=== PATIENT | female | born 1975 | race Caucasian/White ===

== ENCOUNTER 2020-03-15 15:00 | Observation (INO) ==
[2020-03-15] MEDS ORDERED: *HR* HYDROmorphone (PF) 1 MG/ML SYRINGE IVP PRN ×2 (15:59→20:03)
[2020-03-15] MEDS ORDERED: Ondansetron 4 MG/2 ML VIAL IVP PRN ×2 (15:59→20:03)
[2020-03-15] MEDS ORDERED: Ringers Solution, Lactated 1,000 ML IVC SCH (16:00)
[2020-03-15 16:13] LABS: White Blood Count 13.8 K/mcL (4.3-11.1)
[2020-03-15 16:14] LABS: Basophils % 0.3 %; Eosinophils # 0.2 K/mcL (0.0-0.6); Eosinophils % 1.3 %; Hematocrit 36.2 % (35.3-44.9); Hemoglobin 11.6 g/dL (11.5-15.4); Immature Granulocytes % 0.3 % (0-4); Lymphocytes # 1.8 K/mcL (0.6-4.6); Lymphocytes % 13.2 %; Mean Corpuscular Hemoglobin 30.6 pg (28.0-33.3); Mean Corpuscular Volume 95.5 fL (83.0-100.0); Mean Platelet Volume 8.9 fL (9.4-12.4); Monocytes # 0.8 K/mcL (0.0-1.3); Monocytes % 5.8 %; Platelet Count 374 K/mcL (140-400); Red Blood Count 3.79 M/mcL (3.82-4.97); Red Cell Distribution Width 12.9 % (11.5-14.5); Segmented Neutrophils % 79.1 %
[2020-03-15 16:32] LABS: BUN/Creatinine Ratio 16 (6-26); Blood Urea Nitrogen 11 mg/dL (6-20); Calcium 8.9 mg/dL (8.6-10.3); Carbon Dioxide 23 mEq/L (23-29); Chloride 106 mEq/L (98-107); Glucose 93 mg/dL (70-105); Osmolality,Calculated 285 (280-300); Sodium 138 mEq/L (136-145); eGFR For African Americans > 60 (> 60); eGFR For Non-African Americans > 60 (> 60)
[2020-03-15] MEDS ORDERED: *HR* Succinylcholine 200 MG/10 ML VIAL IVP ONE (17:30)
[2020-03-15] MEDS ORDERED: Lidocaine -MPF 2% 2 ML VIAL ONE (17:30)
[2020-03-15] MEDS ORDERED: *HR* Propofol 200 MG/20 ML VIAL IVP ONE (17:30)
[2020-03-15] MEDS ORDERED: Lidocaine HCL 4 ML Topical Solution (Laryng-O-Jet Kit Sterile Pak) TP ONE (17:35)
[2020-03-15] MEDS ORDERED: Metoclopramide 10 MG/2 ML VIAL IVP ONE (17:49)
[2020-03-15] MEDS ORDERED: Famotidine 20 MG/2 ML VIAL IVP ONE (17:49)
[2020-03-15 18:04] LABS: Adenovirus Not Detected (Not Detect); Coronavirus 229E Not Detected (Not Detect); Coronavirus HKU1 Not Detected (Not Detect); Coronavirus NL63 Not Detected (Not Detect); Coronavirus OC43 Not Detected (Not Detect)
[2020-03-15 18:05] LABS: Bordetella Pertussis Not Detected (Not Detect); Chlamydophila pneumoniae Not Detected (Not Detect); Human Metapneumovirus Not Detected (Not Detect); Human Rhinovirus/Enterovirus Not Detected (Not Detect); Influenza A Subtype 2009 H1 Not Detected (Not Detect); Influenza B Not Detected (Not Detect); Mycoplasma pneumoniae Not Detected (Not Detect); Parainfluenza Virus 1 Not Detected (Not Detect); Parainfluenza Virus 2 Not Detected (Not Detect); Parainfluenza Virus 3 Not Detected (Not Detect); Parainfluenza Virus 4 Not Detected (Not Detect); Respiratory Syncytial Virus Not Detected (Not Detect); SARS-CoV-2 Not Detected (Not Detect)
[2020-03-15] MEDS ORDERED: Naloxone 0.4 MG/ML INJ IVP PRN ×2 (18:28→20:03)
[2020-03-15] MEDS ORDERED: flumazeniL 0.5 MG/5 ML VIAL IVP PRN (18:28)
[2020-03-15] MEDS ORDERED: *HR* FentaNYL (PF) 100 MCG/2 ML VIAL IVP PRN (18:28)
[2020-03-15] MEDS ORDERED: *HR* HYDROmorphone PF 0.5 MG/0.5 ML SYRINGE IVP PRN (18:28)
[2020-03-15] MEDS ORDERED: Ondansetron 4 MG/2 ML VIAL ONE (18:59)
[2020-03-15] MEDS ORDERED: Dexamethasone 4 MG/ML VIAL ONE (18:59)
[2020-03-15] MEDS ORDERED: *HR* HYDROMORPHONE 2 MG/ML VIAL ONE (18:59)
[2020-03-15] MEDS ORDERED: Acetaminophen IV 1,000 MG/100 ML INFUS..BTL ONE (19:02)
[2020-03-15] MEDS ORDERED: *HR* Labetalol 20 MG/4 ML SYRINGE IVP ONE (19:11)
[2020-03-15] MEDS ORDERED: Acetaminophen 325 MG TABLET PO PRN (20:03)
[2020-03-15] MEDS: *HR* OxyCODONE/APAP 5/325 TABLET PO PRN (20:27)
[2020-03-15] MEDS: Gabapentin 300 MG CAPSULE PO SCH (20:28)
[2020-03-15] MEDS: Ringers Solution, Lactated 1,000 ML IVC SCH (20:29)
[2020-03-16 04:24] LABS: Basophils % 0.1 %; Hematocrit 34.5 % (35.3-44.9); Hemoglobin 10.7 g/dL (11.5-15.4); Immature Granulocytes % 0.4 % (0-4); Lymphocytes # 0.8 K/mcL (0.6-4.6); Lymphocytes % 5.7 %; Mean Corpuscular Hemoglobin 29.4 pg (28.0-33.3); Mean Corpuscular Volume 94.8 fL (83.0-100.0); Monocytes # 0.2 K/mcL (0.0-1.3); Monocytes % 1.3 %; Neutrophils # 12.5 K/mcL (1.6-8.9); Platelet Count 361 K/mcL (140-400); Red Blood Count 3.64 M/mcL (3.82-4.97); Red Cell Distribution Width 12.8 % (11.5-14.5); Segmented Neutrophils % 92.5 %; White Blood Count 13.5 K/mcL (4.3-11.1)
[2020-03-16] MEDS: *HR* OxyCODONE/APAP 5/325 TABLET PO PRN ×2 (04:32→12:59)
[2020-03-16] MEDS: Gabapentin 300 MG CAPSULE PO SCH (08:12)
[2020-03-16] MEDS: Ringers Solution, Lactated 1,000 ML IVC SCH (08:16)
[2020-03-16] MEDS ORDERED: levoFLOXacin 750 MG TABLET PO SCH (09:00)
[2020-03-16 10:37] VITALS: BP 132/73
== END 2020-03-16 13:29 | disposition home or self-care (01) ==
LOC: 3ANU
PROVIDERS: ADMIT Surgery; ATTEND Surgery